=== PATIENT | male | born 1990 | race Caucasian/White ===

== ENCOUNTER 2024-06-09 10:12 | Day surgery (SDC) | payer MEDICAID, OTHER ==
--- NOTE | 2024-06-08 23:37 | HP ---
HISTORY OF PRESENT ILLNESS: Patient recently had some abdominal pain, some weight loss. Referred by Dr. Singleton. The patient had an EGD 1 year ago with a hiatal hernia. Vomits every day after eating, nausea, some epigastric pain, 65-pound weight loss since December. He has chronic pain and weight loss. He had an MRI at [facility], according to the patient, do not have the films in the office. He has had prior cholecystectomy in 2018. Family history, grandmother with esophageal cancer. PAST MEDICAL HISTORY: Arthritis, hypertension, reflux. HOME MEDICATIONS: Ondansatron, Celebrex, Carafate, lisinopril, Caplyta, omeprazole. ALLERGIES: No known drug allergies. PAST SURGICAL HISTORY: Cholecystectomy. SOCIAL HISTORY: No smoking or alcohol abuse. FAMILY HISTORY: Diabetes, liver disease, renal disease, COPD, and heart disease. REVIEW OF SYSTEMS: Twelve systems reviewed. Pertinent for as noted above medical problems. No chest pain or palpitations. Other systems negative or noncontributory as above and per preadmission questionnaire. PHYSICAL EXAMINATION: GENERAL: Height 5 feet 10 inches. BMI 28.7. No acute distress. HEENT: Sclerae anicteric. Extraocular movements are intact. NECK: No JVD. CARDIOVASCULAR: Regular rate and rhythm. RESPIRATORY: Equal excursion. Nonlabored breathing. ABDOMEN: Soft. Mild epigastric pain. SKIN: Dry. EXTREMITIES: No cyanosis or edema. NEUROLOGIC: Alert and oriented. Moving all extremities symmetrically. PSYCHIATRIC: Appropriate mood and affect. IMPRESSION: Epigastric pain, weight loss, history of hiatal hernia. Needs EGD, possible upper GI esophagram. Risks explained in detail including but not limited to bleeding; infection; risk of bowel injury or perforation not limited to. Will proceed with outpatient EGD, possible biopsy as an outpatient.
[2024-06-09] MEDS: Lactated Ringers 1,000 ML IV SCH (10:18)
[2024-06-09 10:25] VITALS: RESP 18
[2024-06-09] MEDS ORDERED: propofoL IV ONE ×2 (11:01→11:13)
[2024-06-09 11:50] VITALS: BP 113/76; PULSE 68; TEMP 98.3; O2SAT 99
--- NOTE | 2024-06-11 08:22 | OP ---
SURGERY DATE/TIME: 06/09/2024 [id number] PREOPERATIVE DIAGNOSES: 1) Some weight loss. 2) Epigastric pain. 3) History of hiatal hernia in the past. POSTOPERATIVE DIAGNOSES: 1) Small, medium size hiatal hernia. 2) Very short segment distal esophagitis. 3) Mild gastric erythema. 4) ASA class 2. PROCEDURE: Esophagogastroduodenoscopy, cold biopsy small bowel to evaluate for celiac sprue, cold biopsy antrum for Helicobacter pylori, cold biopsy distal esophagus. SURGEON: Augustin Humphreys MD ANESTHESIA: MAC. ESTIMATED BLOOD LOSS: Minimal. INDICATIONS: Consent obtained. DESCRIPTION OF PROCEDURE AND FINDINGS: Patient was taken to the operating room. After official time-out, no disagreement in planned procedure, bite block positioned. Videogastroscope passed down the esophagus through the patent pylorus to the junction of the third and fourth portions of the duodenum. Duodenum grossly unremarkable. Scope pulled back into the stomach. A little bit of gastric erythema. No ulcers. Cold biopsy was taken to evaluate for H pylori. It should be noted cold biopsy had been taken of the small bowel given his weight loss to evaluate for celiac sprue or evaluate for other etiologies of weight loss. On retroflex, he did have small, medium hiatal hernia. GE junction was about 36 cm. A short segment and distal esophagus erythema consistent with distal esophagitis. Cold biopsy was taken. Good hemostasis noted. Remainder of esophagus no signs of any masses. There were no immediate complications. He had an upper GI test was to be done. We will see him back in the office for further evaluation, discuss findings, and decide if he needs further workup or decide if he is a candidate for any surgical repair. Will discuss in the office once I read the upper GI studies to see if he needs any further workup prior to considering surgical repair.
== END 2024-06-09 11:55 | disposition home or self-care (01) ==
LOC: SDC 10:12
PROVIDERS: ATTEND Surgery
DX: K29.70 Gastritis, unspecified, without bleeding (principal); R63.4 Abnormal weight loss; R10.13 Epigastric pain; Z87.19 Personal history of other diseases of the digestive system; Z80.8 Family history of malignant neoplasm of other organs or systems; K44.9 Diaphragmatic hernia without obstruction or gangrene; K20.90 Esophagitis, unspecified without bleeding
CPT/HCPCS: J2704